=== PATIENT | female | born 1985 | race Caucasian/White ===

== ENCOUNTER 2016-12-31 08:44 | Emergency (ER) | payer OTHER ==
[~2016-12-31 08:44] MED LIST: ALBUTEROL 0.5ML INH; DUONEBS; FLONASE 0.05% N16 G1; PAIN RELIEF650 MG PO; PREDNISONE PO; PROAIR HFA8.5 GM IH; SINGULAIR PO; SYMBICORT INH; ZITHROMAX PO
[2016-12-31] MEDS ORDERED: ZYRTEC (08:49)
[2016-12-31] MEDS ORDERED: MUCINEX100 MG (08:49)
[2016-12-31] MEDS ORDERED: ROBITUSSIN NIG237 ML (08:50)
== END 2016-12-31 09:35 | disposition home or self-care (01) ==
LOC: SED 08:44
DX: O99.512 Diseases of the respiratory system complicating pregnancy, second trimester (principal); J45.901 Unspecified asthma with (acute) exacerbation; Z3A.21 21 weeks gestation of pregnancy; Z79.899 Other long term (current) drug therapy; Z88.2 Allergy status to sulfonamides; Z88.1 Allergy status to other antibiotic agents
CPT/HCPCS: 99283